=== PATIENT | female | born 1965 | race Caucasian/White ===

== ENCOUNTER 2024-10-03 14:40 | Outpatient (CLI) | payer OTHER, MEDICAID ==
[2024-10-03 16:45] LABS: #Basophils 0.04 10x3/uL (0.0-0.2); %Basophils 0.5 % (0.0-1.0); %Eosinophils 2.8 % (0.0-10.0); %Lymphocytes 46.1 % (21.0-51.0); %Neutrophils 42.3 % (42.0-75.0); Hematocrit 36.7 % (36.0-47.0); Hemoglobin 12.7 g/dL (12.0-16.0); Mean Corpuscular HGB CONC 34.6 g/dL (32.0-36.0); Mean Corpuscular Hemoglobin 31.8 pg (27.0-31.0); Mean Platelet Volume 9.8 fL (7.4-10.4); Platelet Count 195 10x3/uL (130-400); Red Blood Cell (RBC) Count 3.99 mill/uL (4.20-5.40)
[2024-10-03 16:58] LABS: Anion Gap 14 mmol/L (10-20); BUN (Urea Nitrogen) 8 mg/dL (9.8-20.1); Calc. Creatinine Clearance 0 mL/min (70-130); Calcium 8.9 mg/dL (7.8-10.44); Carbon Dioxide 26 mmol/L (22-29); Chloride 101 mmol/L (98-107); Estimated GFR 101; Glucose 168 mg/dL (70-105); Potassium 3.8 mmol/L (3.5-5.1); Sodium 137 mmol/L (136-145)
== END 2024-10-03 14:41 | disposition home or self-care (01) ==
LOC: LABBT 14:40
PROVIDERS: ATTEND Orthopaedic Surgery
DX: Z01.818 Encounter for other preprocedural examination (principal); I25.10 Atherosclerotic heart disease of native coronary artery without angina pectoris
CPT/HCPCS: 80048; 85025; 93005; 93010

== ENCOUNTER 2024-10-11 10:28 | Day surgery (SDC) | payer OTHER, MEDICAID ==
[2024-10-10 11:11] VITALS: BMI 25.2
[2024-10-11] MEDS ORDERED: Midazolam HCl 2 mg/2 ml Vial ONE (12:12)
[2024-10-11] MEDS ORDERED: fentaNYL PF 100 MCG/2 ML SYRINGE ONE (12:12)
[2024-10-11] MEDS ORDERED: PROPOFOL 20 ML ONE (12:12)
[2024-10-11] MEDS ORDERED: Lidocaine 2% PF 5 ML VIAL ONE (12:13)
[2024-10-11] MEDS ORDERED: EPINEPHrine 1 MG/ML VIAL ONE (12:17)
[2024-10-11] MEDS ORDERED: Bupivacaine PF 0.5% 30 ML VIAL ONE (12:17)
[2024-10-11] MEDS ORDERED: LevoFLOXacin D5W 500 mg (100 mL) BAG ONE (12:31)
[2024-10-11] MEDS ORDERED: Ondansetron PF 4 MG/2 ML Vial ONE (12:49)
[2024-10-11] MEDS ORDERED: Dexamethasone 4 mg/ml Vial ONE (12:49)
== END 2024-10-11 15:49 | disposition home or self-care (01) ==
LOC: SDC 10:28
PROVIDERS: ATTEND Orthopaedic Surgery
PROC: 0LN70ZZ Release Right Hand Tendon, Open Approach (ICD-10-PCS; principal; 2024-10-11)
DX: M65.311 Trigger thumb, right thumb (principal); I10 Essential (primary) hypertension; E07.9 Disorder of thyroid, unspecified; G47.30 Sleep apnea, unspecified; B20 Human immunodeficiency virus [HIV] disease; Z85.038 Personal history of other malignant neoplasm of large intestine; Z91.048 Other nonmedicinal substance allergy status; Z91.041 Radiographic dye allergy status; Z88.0 Allergy status to penicillin; Z88.2 Allergy status to sulfonamides; Z88.1 Allergy status to other antibiotic agents; Z79.890 Hormone replacement therapy; Z79.51 Long term (current) use of inhaled steroids; Z79.84 Long term (current) use of oral hypoglycemic drugs; Z79.01 Long term (current) use of anticoagulants; Z79.2 Long term (current) use of antibiotics; Z79.899 Other long term (current) drug therapy
CPT/HCPCS: 26055; J0665; J1100; J1956; J2250; J2405; J2704; J0171